=== PATIENT | male | born 1990 | race Caucasian/White ===

== ENCOUNTER 2018-07-10 20:52 | Emergency (ER) | payer SELFPAY ==
--- NOTE | 2018-07-10 20:56 | EDPHY ---
H & P Time Seen by Provider: 07/10/18 20:55 HPI/ROS: CHIEF COMPLAINT: "Everything hurts" HISTORY OF PRESENT ILLNESS: 27-year-old male arrives via ambulance from the long-term. He was released from long-term and called 911 complaining of "everything hurts ". He has been gel for the past 6 days. Complaining of abdominal pain, back pain, carpal pedal spasms bilaterally, hyperventilation. Last bowel movement was 5 days ago. He is unable to be more specific with any focal areas of discomfort stating that"everything hurts". PRIMARY CARE PROVIDER: REVIEW OF SYSTEMS: 10 systems reviewed and negative with the exception of the elements mentioned in the history of present illness PAST MEDICAL & SURGICAL HISTORY: No history of Abdominal surgeries. SOCIAL HISTORY: Denies alcohol or drug use. FAMILY HISTORY: No pertinent family history PHYSICAL EXAM (Prior to examination, patient consented to physical exam, hands were washed and my usual and customary physical exam procedures followed) 1) GENERAL: Well-developed, well-nourished, alert and oriented. Appears uncomfortable, appears anxious. He is hyperventilating. 2) HEAD: Normocephalic, subacute granulating abrasion left frontal region at the hairline. No hematoma no depression. 3) HEENT: Pupils equal, round, reactive to light bilaterally. Sclera anicteric. No raccoon eyes. No Fraire sign. No rhinorrhea. No otorrhea. Nasopharynx, oropharynx, clear, no lesions. Dry mucous membranes. 4) NECK: Full range of motion, no meningeal signs. 5) LUNGS: Clear auscultation bilaterally, no wheezes, no rhonchi, no retractions. 6) HEART: Regular rate and rhythm, no murmur, no heave, no gallop. 7) ABDOMEN: No guarding, no rebound, no focal tenderness, negative McBurney's, negative Thao's, negative Rovsing's, negative peritoneal sign, 8) MUSCULOSKELETAL: Bilateral carpal pedal spasms noted. Left dorsal elbow abrasion with no signs of infection. No erythema. No discharge. Full pain- free range of motion. No radial head pain. No signs of trauma to bilateral wrists, hands. Proximally distally nontender. Moving all extremities, no focal areas of tenderness, no obvious trauma. No peripheral edema or discoloration. 9) BACK: No CVA tenderness, no midline vertebral tenderness, no fluctuance, no step-off, no obvious trauma, no visual or palpable abnormality. 10) SKIN: No rash, no petechiae. 11) Psychiatric: Patient is oriented X 3, anxious, hyperventilating. 12) NEURO: Awake, alert, and oriented to person, place and time. Answers questions appropriately. There were no obvious focal neurologic abnormalities. No cerebellar dysfunction. Cranial nerves 2 through to 12 intact. Normal steady gait. Upper and lower extremities bilaterally with strength 5 / 5, reflexes 2+. DIFFERENTIAL DIAGNOSIS: In no particular include but limited to acute anxiety reaction, drug withdrawal, rhabdomyolysis. - Medical/Surgical History Other PMH: DENIES - Social History Smoking Status: Never smoked Constitutional: Initial Vital Signs Temperature (C) 37.1 C 07/10/18 20:55 Heart Rate 112 H 07/10/18 20:55 Respiratory Rate 24 H 07/10/18 20:55 Blood Pressure 128/73 H 07/10/18 20:55 O2 Sat (%) 100 07/10/18 20:55 O2 Delivery Mode Room Air Allergies/Adverse Reactions: No Known Allergies Allergy (Unverified 07/10/18 20:57) Home Medications: Medication Instructions Recorded NK [No Known Home Meds] 07/10/18 Medical Decision Making ED Course/Re-evaluation: 9:02 p.m.: I saw this patient independently based on established practice protocols. Care of patient under supervision of secondary supervising physician Dr Villagrna with whom I discussed case. Patient appears anxious. He is tachycardic, tachypneic. Will administer IV fluids, administer IV benzodiazepine, check laboratory studies and re-evaluated. 10:00 p.m.: Re-evaluation, he is calm, sitting upright, breathing comfortably, carpal pedal spasms resolved. Will recheck is chemistry and plan on discharge. 11:17 p.m.: Re-evaluation. Discussed his repeat chemistry which has by and large normalized. Think the patient can be discharged home at this time. Doubt rhabdomyolysis. He feels comfortable being discharged. Usual and customary discharge precautions instructions provided. 11:45 p.m.: Patient is being prepared to be discharged and has several questions for me. He is inquiring about intermittent paresthesia since being handcuffed a few days ago to his left hand. On exam he has no tenderness to palpation, has intact neurovascular examination with radial ulnar median nerve function intact. He has no deficits, no wrist drop. I think that fracture is less than likely in absence of any pain on palpation. However I do think he would benefit from follow up with Hand surgery as he may necessitate further diagnostic studies. He has been placed in a Velcro volar splint Patient also informs me that 6 days ago when he entered long-term he sustained a left frontal head injury. He has a granulating abrasion to the left frontal region at the hairline. He has a nonfocal exam. CT imaging was not performed in emergency department as I think that intracranial hemorrhage is less than likely. Unless this was offered to the patient and he declines. We discussed possible post concussive syndrome. I have given him follow-up information with Dr. Kassidy Melchor. - Data Points Laboratory Results: Laboratory Results 07/10/18 20:55 07/10/18 22:21 07/10/18 07/10/18 07/10/18 22:21 20:55 20:55 WBC 8.88 10^3/uL 10^3/uL (3.80-9.50) RBC 6.09 10^6/uL 10^6/uL (4.40-6.38) Hgb 18.2 g/dL H g/dL (13.7-17.5) Hct 51.8 % H % (40.0-51.0) MCV 85.1 fL fL (81.5-99.8) MCH 29.9 pg pg (27.9-34.1) MCHC 35.1 g/dL g/dL (32.4-36.7) RDW 11.6 % % (11.5-15.2) Plt Count 298 10^3/uL 10^3/uL (150-400) MPV 10.9 fL fL (8.7-11.7) Neut % (Auto) 55.4 % % (39.3-74.2) Lymph % (Auto) 34.9 % % (15.0-45.0) [place] % (Auto) 8.9 % % (4.5-13.0) Eos % (Auto) 0.2 % L % (0.6-7.6) Baso % (Auto) 0.5 % % (0.3-1.7) Nucleat RBC Rel Count 0.0 % % (0.0-0.2) Absolute Neuts (auto) 4.92 10^3/uL 10^3/uL (1.70-6.50) Absolute Lymphs (auto) 3.10 10^3/uL H 10^3/uL (1.00-3.00) Absolute Monos (auto) 0.79 10^3/uL 10^3/uL (0.30-0.80) Absolute Eos (auto) 0.02 10^3/uL L 10^3/uL (0.03-0.40) Absolute Basos (auto) 0.04 10^3/uL 10^3/uL (0.02-0.10) Absolute Nucleated RBC 0.00 10^3/uL 10^3/uL (0-0.01) Immature Gran % 0.1 % % (0.0-1.1) Immature Gran # 0.01 10^3/uL 10^3/uL (0.00-0.10) Sodium 143 mEq/L mEq/L 142 mEq/L mEq/L (135-145) (135-145) Potassium 4.0 mEq/L mEq/L 4.3 mEq/L mEq/L (3.3-5.0) (3.3-5.0) Chloride 108 mEq/L mEq/L 103 mEq/L mEq/L (97-110) (97-110) Carbon Dioxide 22 mEq/l mEq/l 14 mEq/l L mEq/l (22-31) (22-31) Anion Gap 13 mEq/L mEq/L 25 mEq/L H mEq/L (8-16) (8-16) BUN 26 mg/dL H mg/dL 24 mg/dL H mg/dL (7-23) (7-23) Creatinine 1.2 mg/dL mg/dL 1.4 mg/dL H mg/dL (0.7-1.3) (0.7-1.3) Estimated GFR > 60 60 Glucose 89 mg/dL mg/dL 131 mg/dL H mg/dL (70-100) (70-100) Calcium 9.9 mg/dL mg/dL 10.9 mg/dL H mg/dL (8.5-10.4) (8.5-10.4) Phosphorus 3.7 mg/dL mg/dL (2.5-4.5) Total Bilirubin 1.9 mg/dL H mg/dL (0.1-1.4) Conjugated Bilirubin 0.3 mg/dL mg/dL (0.0-0.5) Unconjugated Bilirubin 1.6 mg/dL H mg/dL (0.0-1.1) AST 33 IU/L IU/L (17-59) ALT 43 IU/L IU/L (21-72) Alkaline Phosphatase 67 IU/L IU/L (38-126) Creatine Kinase 112 IU/L IU/L (0-224) Total Protein 8.8 g/dL H g/dL (6.3-8.2) Albumin 5.5 g/dL H g/dL (3.5-5.0) Lipase 187 IU/L IU/L (23-300) Medications Given: Discontinued Medications Sodium Chloride (Ns) 1,000 mls @ 0 mls/hr IV ONCE ONE PRN Reason: Wide Open Stop: 07/10/18 20:58 Last Admin: 07/10/18 21:03 Dose: 1,000 mls Lorazepam (Ativan Injection) 1 mg IVP EDNOW ONE Stop: 07/10/18 20:58 Last Admin: 07/10/18 21:06 Dose: 1 mg Departure - Departure Disposition: Home, Routine, Self-Care Clinical Impression: Anxiety, Hyperventilation, Left hand paresthesia Head injury due to trauma Qualifiers: Encounter type: initial encounter Qualified Code(s): S09.90XA - Unspecified injury of head, initial encounter Condition: Good Instructions: Hyperventilation (ED), Head Injury (ED), Paresthesia (ED) Additional Instructions: Return to the emergency department if you develop chest pain, shortness of breath, or any other symptoms that concern you. Referrals: [facility],. [Clinic] - 1-2 days without fail Kassidy Melchor MD [Medical Doctor] - 2-3 days, call for appt. (Dr Melchor is a head injury specialist) Flakito Pérez MD [Medical Doctor] - 2-3 days, call for appt. (Dr Pérez is a hand surgeon)
[2018-07-10] MEDS ORDERED: LORazepam 2 MG/ML INJ IVP ONE (20:57)
[2018-07-10] MEDS ORDERED: NS 1,000 ML IV ONE (20:57)
[2018-07-10 21:08] LABS: PLATELET COUNT 298 10^3/uL (150-400)
[2018-07-10 21:21] LABS: CREATINE KINASE 112 IU/L (0-224)
[2018-07-10 23:39] VITALS: BP 136/95
== END 2018-07-11 00:04 | disposition home or self-care (01) ==
LOC: EDUNIT#
DX: F41.1 Generalized anxiety disorder (principal); R06.4 Hyperventilation; R20.2 Paresthesia of skin; S09.90XD Unspecified injury of head, subsequent encounter; X58.XXXD Exposure to other specified factors, subsequent encounter
CPT/HCPCS: 96374; J2060; L3984